=== PATIENT | male | born 1995 | race Caucasian/White ===

== ENCOUNTER 2021-11-07 19:28 | Emergency (ER) | payer OTHER ==
[2021-11-07] MEDS ORDERED: Sodium Chloride 0.9% 10 ML Syringe FLUSH PRN (19:38)
[2021-11-07] MEDS ORDERED: Sodium Chloride 0.9% 2.5 ML Syringe FLUSH PRN (19:38)
[2021-11-07] MEDS ORDERED: Ketorolac 30 MG/ML SDV IVPUSH ONE (19:46)
[2021-11-07 21:04] LABS: CARBON DIOXIDE,CO2 27.2 mmol/L (21.0-32.0); POTASSIUM,K 3.8 mmol/L (3.5-5.1)
== END 2021-11-07 22:27 | disposition home or self-care (01) ==
LOC: MW.ED 19:28
DX: S30.94XA Unspecified superficial injury of scrotum and testes, initial encounter (principal); Z88.6 Allergy status to analgesic agent
CPT/HCPCS: 36415; 76870; 80053; 81003; 85025; 93976; 96374; 99284; J1885